=== PATIENT | male | born 1970 | race Two or more races ===

== ENCOUNTER 2021-04-02 13:28 | Emergency (ER) | payer OTHER ==
[~2021-04-02] VITALS: Ht 165.1 cm; Wt 73.5 kg
[2021-04-02] MEDS ORDERED: ZITHROMAX500 MG PO (16:41)
[2021-04-02] MEDS ORDERED: MEDROLPACK PO (16:41)
== END 2021-04-02 16:46 | disposition home or self-care (01) ==
LOC: ER 13:28 → CPU-OBS 14:01 → ER 14:01
DX: R07.89 Other chest pain (principal); U07.1 COVID-19